=== PATIENT | female | born 1990 | race Caucasian/White ===

== ENCOUNTER 2018-11-07 18:07 | Emergency (ER) | payer OTHER ==
[2018-11-07 18:21] VITALS: BP 127/85
--- NOTE | 2018-11-07 18:57 | UC ---
Cardiac HPI - HPI Summary HPI Summary: 28-year-old woman comes in with a chief complaint of chest pain. She's been having sternal chest pain for 3 days. A 4 out of 10. She does feel short of breath with it. Denies any calf pain. She does have some chronic mild pedal edema. It is not unilateral. Activity makes it worse. This morning when she woke up she did not have any pain but then the pain returned with activity. No fevers or chills no chest congestion. She also reports that when she is emotionally distressed the pain gets worse. She has no history of DVT or pulmonary embolus. No recent surgeries or trauma. No hemoptysis. She is on a control pill. Not a smoker. - History of Current Complaint Chief Complaint: UCChestPain Stated Complaint: CHEST PAIN Time Seen by Provider: 11/07/18 18:25 Pain Intensity: 4 - Allergy/Home Medications Allergies/Adverse Reactions: Allergies Allergy/AdvReac Type Severity Reaction Status Date / Time No Known Allergies Allergy Verified 11/07/18 18:21 Home Medications: Home Medications Ethinyl Estradiol/Drospirenone [Marta 28 Tablet] 1 each PO 11/07/18 [History] Multivitamin/Iron/Folic Acid [Daily Vitamin Formula+Ir] 1 tab PO 11/07/18 [ History] PMH/Surg Hx/FS Hx/Imm Hx Previously Healthy: Yes - Surgical History Surgical History: Yes Surgery Procedure, Year, and Place: wisdom tooth extraction - Family History Known Family History: Positive: Non-Contributory Negative: Blood Disorder - Social History Alcohol Use: Occasionally Substance Use Type: None Smoking Status (MU): Never Smoked Tobacco Review of Systems All Other Systems Reviewed And Are Negative: Yes Constitutional: Positive: Negative Skin: Positive: Negative Eyes: Positive: Negative ENT: Positive: Negative Respiratory: Positive: Shortness Of Breath Cardiovascular: Positive: Chest Pain Gastrointestinal: Positive: Negative Motor: Positive: Negative Neurovascular: Positive: Negative Musculoskeletal: Positive: Negative, Edema. Negative: Calf Tenderness Neurological: Positive: Negative Psychological: Positive: Negative Is Patient Immunocompromised?: No Physical Exam Triage Information Reviewed: Yes Appearance: Well-Appearing, No Pain Distress, Well-Nourished Vital Signs: Initial Vital Signs Temp 99.2 F 11/07/18 18:13 Pulse 82 11/07/18 18:13 Resp 18 11/07/18 18:13 BP 127/85 11/07/18 18:13 Pulse Ox 100 11/07/18 18:13 Vital Signs Reviewed: Yes Eye Exam: Normal Eyes: Positive: Conjunctiva Clear ENT: Positive: Pharynx normal Neck: Positive: Supple Respiratory: Positive: Chest non-tender, Lungs clear, Normal breath sounds, No respiratory distress Cardiovascular: Positive: RRR Abdomen Description: Positive: Nontender, Soft Musculoskeletal: Positive: Strength Intact, ROM Intact, No Edema - no calf tenderness Neurological: Positive: Alert, Muscle Tone Normal Psychological: Positive: Age Appropriate Behavior Skin Exam: Normal Diagnostics - EKG Cardiac Rate: NL - at 1859 Cardiac Rhythm: Sinus: Normal - 84bpm Ectopy: None ST Segment: Normal - Assessment/Plan Course Of Treatment: I discussed the EKG with the patient I do not see any ischemic changes on the EKG. Patient's only risk factor for pulmonary embolus is being on a control pill. I discussed a chest pain evaluation would include further evaluation for pulmonary embolus and cardiac ischemia and pericarditis which we are unable to do here and recommended further evaluation emergency department. Patient prefers to go by POV. - Clinical Impression Provider Diagnosis: Chest pain Discharge - Sign-Out/Discharge Documenting (check all that apply): Patient Departure All imaging exams completed and their final reports reviewed: No Studies - Discharge Plan Condition: Stable Disposition: HOME-RECOMMEND TO ED Patient Education Materials: Chest Pain (ED) Referrals: [facility] [Provider Group] Additional Instructions: GO DIRECTLY TO THE EMERGENCY DEPARTMENT FOR FURTHER EVALUATION OF YOUR CHEST PAIN. - Billing Disposition and Condition Condition: STABLE Disposition: Home-Recommend to ED
== END 2018-11-07 19:25 | disposition home health service (06) ==
LOC: UCEAST 18:07
DX: R07.9 Chest pain, unspecified (principal)
CPT/HCPCS: 99202; G0463

== ENCOUNTER 2018-11-07 19:49 | Emergency (ER) | payer OTHER ==
[2018-11-07 20:55] LABS: ABS Lymphocytes 3.2 10^3/ul (1.0-4.8); ABS Monocytes 0.4 10^3/ul (0-0.8); ABS Neutrophils 3.7 10^3/ul (1.5-7.7); Eosinophil % 0.5 %; Hematocrit 38 % (35-47); Hemoglobin 12.8 g/dL (12.0-16.0); Lymphocyte % 42.7 %; Mean Corpuscular HGB Conc 34 g/dL (31-36); Mean Corpuscular Hemoglobin 29 pg (27-31); Mean Corpuscular Volume 87 fL (80-97); Mean Platelet Volume 9.2 fL (7.4-10.4); Platelet Count 216 10^3/uL (150-450); Red Cell Distribution Width 13 % (10-15); White Blood Count 7.4 10^3/uL (3.5-10.8)
[2018-11-07 21:12] LABS: Albumin 4.1 g/dL (3.2-5.2); Albumin/Globulin Ratio 1.4 (1-3); Calcium 9.6 mg/dL (8.6-10.3); EGFR African American 89.6 (>60); Potassium 3.6 mmol/L (3.5-5.0); Total Bilirubin 0.4 mg/dL (0.2-1.0); Total Protein 7.1 g/dL (6.4-8.9)
[2018-11-07 22:12] VITALS: BP 128/90
--- NOTE | 2018-11-07 22:46 | ED ---
HPI Chest Pain - HPI Summary HPI Summary: The pt is a 28 yr old female presenting to [facility] c/o chest pain beginning 3 days ago. This current episode started after she was feeling stressed about work this morning. She describes the pain as an ache and rates its severity a 4/ 10. She states that moving does not aggravate her symptoms. The pt takes control pills, vitamins, and iron supplements at home. - History of Current Complaint Chief Complaint: EDChestPainROMI Time Seen by Provider: 11/07/18 20:20 Hx Obtained From: Patient Onset/Duration: Started Hours Ago - current episode, Started Days Ago, Still Present Time of Onset: 09:00 Timing: Intermittent Initial Severity: Moderate Current Severity: Moderate Pain Intensity: 4 Pain Scale Used: 0-10 Numeric Character: Dull/Aching Associated Signs and Symptoms: Positive: Chest Pain - Allergy/Home Medications Allergies/Adverse Reactions: Allergies Allergy/AdvReac Type Severity Reaction Status Date / Time No Known Allergies Allergy Verified 11/07/18 18:21 PMH/Surg Hx/FS Hx/Imm Hx Sensory History: Denies: Hx Legally Blind, Hx Deafness Opthamlomology History: Denies: Hx Legally Blind EENT History: Denies: Hx Deafness - Surgical History Surgery Procedure, Year, and Place: wisdom tooth extraction - Immunization History Immunizations Up to Date: Yes Infectious Disease History: No Infectious Disease History: Denies: Traveled Outside the [place] in Last 30 Days - Family History Known Family History: Negative: Blood Disorder - Social History Alcohol Use: Occasionally Substance Use Type: Reports: None Smoking Status (MU): Never Smoked Tobacco Review of Systems Negative: Fever Positive: Chest Pain Neurological: Other - Negative - AMS All Other Systems Reviewed And Are Negative: Yes Physical Exam - Summary Physical Exam Summary: VITAL SIGNS: Reviewed. GENERAL: Patient is a well-developed and nourished female who is lying comfortable in the stretcher. Patient is not in any acute respiratory distress. HEAD AND FACE: No signs of trauma. No ecchymosis, hematomas or skull depressions. No sinus tenderness. EYES: PERRLA, EOMI x 2, No injected conjunctiva, no nystagmus. EARS: Hearing grossly intact. Ear canals and tympanic membranes are within normal limits. MOUTH: Oropharynx within normal limits. NECK: Supple, trachea is midline, no adenopathy, no JVD, no carotid bruit, no c- spine tenderness, neck with full ROM CHEST: Symmetric. Mild tenderness to anterior chest wall. LUNGS: Clear to auscultation bilaterally. No wheezing or crackles. CVS: Regular rate and rhythm, S1 and S2 present, no murmurs or gallops appreciated. ABDOMEN: Soft, non-tender. No signs of distention. No rebound no guarding, and no masses palpated. Bowel sounds are normal. EXTREMITIES: FROM in all major joints, no edema, no cyanosis or clubbing. NEURO: Alert and oriented x 3. No acute neurological deficits. Speech is normal and follows commands. SKIN: Dry and warm Triage Information Reviewed: Yes Vital Signs On Initial Exam: Initial Vitals Temp Pulse Resp BP Pulse Ox 98.2 F 79 16 121/75 100 11/07/18 19:56 11/07/18 19:56 11/07/18 19:56 11/07/18 19:56 11/07/18 19:56 Vital Signs Reviewed: Yes Diagnostics - Vital Signs Vital Signs Temp Pulse Resp BP Pulse Ox 11/07/18 22:11 98.4 F 84 16 128/90 99 11/07/18 22:00 87 13 99 11/07/18 21:42 104 25 99 11/07/18 21:11 90 19 99 11/07/18 21:00 83 23 100 11/07/18 20:42 91 14 114/89 100 11/07/18 20:12 86 14 126/80 100 11/07/18 20:11 83 18 100 11/07/18 19:56 98.2 F 79 16 121/75 100 - Laboratory Lab Results: Lab Results 11/07/18 11/07/18 Range/Units 20:39 20:39 WBC 7.4 (3.5-10.8) 10^3/uL RBC 4.40 (3.70-4.87) 10^6 /uL Hgb 12.8 (12.0-16.0) g/dL Hct 38 (35-47) % MCV 87 (80-97) fL MCH 29 (27-31) pg MCHC 34 (31-36) g/dL RDW 13 (10-15) % Plt Count 216 (150-450) 10^3/uL MPV 9.2 (7.4-10.4) fL Neut % (Auto) 50.4 % Lymph % (Auto) 42.7 % [place] % (Auto) 5.8 % Eos % (Auto) 0.5 % Baso % (Auto) 0.6 % Absolute Neuts (auto) 3.7 (1.5-7.7) 10^3/ul Absolute Lymphs (auto) 3.2 (1.0-4.8) 10^3/ul Absolute Monos (auto) 0.4 (0-0.8) 10^3/ul Absolute Eos (auto) 0.0 (0-0.6) 10^3/ul Absolute Basos (auto) 0.0 (0-0.2) 10^3/ul Absolute Nucleated RBC 0.0 10^3/ul Nucleated RBC % 0.0 Sodium 139 (135-145) mmol/L Potassium 3.6 (3.5-5.0) mmol/L Chloride 105 (101-111) mmol/L Carbon Dioxide 24 (22-32) mmol/L Anion Gap 10 (2-11) mmol/L BUN 9 (6-24) mg/dL Creatinine 0.90 (0.51-0.95) mg/dL Est GFR ( Amer) 89.6 (>60) Est GFR (Non-Af Amer) 74.0 (>60) BUN/Creatinine Ratio 10.0 (8-20) Glucose 100 (70-100) mg/dL Calcium 9.6 (8.6-10.3) mg/dL Total Bilirubin 0.40 (0.2-1.0) mg/dL AST 19 (13-39) U/L ALT 15 (7-52) U/L Alkaline Phosphatase 59 (34-104) U/L Troponin I 0.00 (<0.04) ng/mL Total Protein 7.1 (6.4-8.9) g/dL Albumin 4.1 (3.2-5.2) g/dL Globulin 3.0 (2-4) g/dL Albumin/Globulin Ratio 1.4 (1-3) Result Diagrams: 11/07/18 20:39 11/07/18 20:39 Lab Statement: Any lab studies that have been ordered have been reviewed, and results considered in the medical decision making process. - EKG 1951 Cardiac Rate: NL - 94 BPM EKG Rhythm: Sinus Rhythm Summary of EKG Findings: Normal axis. Normal interval. No ischemic changes. Chest Pain Course/Dx - Course Course Of Treatment: The pt is a 28 yr old female presenting to [facility] c/o chest pain beginning 3 days ago. This current episode started after she was feeling stressed about work this morning. She describes the pain as an ache and rates its severity a 4/10. An EKG reveals sinus rhythm, normal rate @ 94 BPM, normal axis, normal interval, and no ischemic changes. Test results with no significant abnormalities. The pt was discharged home and advised to follow up with primary care physician within 3 days. - Diagnoses Provider Diagnoses: Atypical chest pain Discharge - Sign-Out/Discharge Documenting (check all that apply): Patient Departure - discharge Patient Received Moderate/Deep Sedation with Procedure: No - Discharge Plan Condition: Stable Disposition: HOME Patient Education Materials: Chest Pain (ED) Referrals: [facility] [Outside] - 3 Days Additional Instructions: PLEASE RETURN TO THE ED IMMEDIATELY FOR WORSENING OR CONCERNING SYMPTOMS. FOLLOW UP WITH PRIMARY CARE PHYSICIAN WITHIN 3 DAYS. - Attestation Statements Document Initiated by Scribe: Yes Documenting Scribe: RACHELLE RODRIGUEZ Provider For Whom Aleks is Documenting (Include Credential): RUPERT OROURKE MD Scribe Attestation: IRACHELLE, scribed for RUPERT OROURKE MD on 11/07/18 at 2324. Status of Scribe Document: Ready
== END 2018-11-07 22:11 | disposition home or self-care (01) ==
LOC: ED 19:49
DX: R07.89 Other chest pain (principal)
CPT/HCPCS: 36415; 80053; 84484; 85025; 93005; 99282

== ENCOUNTER 2020-11-29 21:57 | Inpatient (IN) ==
[2020-11-29] MEDS ORDERED: Buffered Lidocaine 1% SYRIN 1 ml INTRADERM ONE (23:05)
[2020-11-29] MEDS ORDERED: Lactated Ringers 1000 ml BAG 1,000 ML IV ONE (23:05)
[2020-11-29] MEDS ORDERED: Lactated Ringers 1000 ml BAG 1,000 ML IV SCH (23:45)
[2020-11-30 00:08] LABS: Urine Benzodiazepine Screen None Detected (None Detect); Urine Cannabinoids Screen None Detected (None Detect); Urine Opiates Screen None Detected (None Detect)
[2020-11-30] MEDS ORDERED: Oxytocin in LR 20 UNITS/1,000 ML BAG IVPB ONE (08:14)
[2020-11-30] MEDS ORDERED: Glycerin ADULT 2.4 gm SUPP PR PRN (08:48)
[2020-11-30] MEDS ORDERED: ceFOXitin 2 GM IVPREMIX 2 GM/50 ML BAG IVPB ONE (08:52)
[2020-11-30] MEDS ORDERED: Lactated Ringers 1000 ml BAG 1,000 ML IV SCH (09:00)
[2020-11-30] MEDS ORDERED: Oxytocin in LR 20 UNITS/1,000 ML BAG IVPB SCH (09:00)
[2020-11-30 09:28] LABS: ABS Lymphocytes 1.3 10^3/ul (1.0-4.8); ABS Monocytes 0.6 10^3/ul (0-0.8); ABS Neutrophils 13.6 10^3/ul (1.5-7.7); Hematocrit 40 % (35-47); Hemoglobin 13.3 g/dL (12.0-16.0); Lymphocyte % 8.3 %; Mean Corpuscular HGB Conc 34 g/dL (31-36); Mean Corpuscular Hemoglobin 31 pg (27-31); Mean Corpuscular Volume 91 fL (80-97); Mean Platelet Volume 11.8 fL (7.4-10.4); Platelet Count 175 10^3/uL (150-450); Red Blood Count 4.36 10^6 /uL (3.70-4.87); Red Cell Distribution Width 14 % (10-15); White Blood Count 15.5 10^3/uL (3.5-10.8)
[2020-11-30] MEDS ORDERED: ceFOXitin 2 GM IVPREMIX 2 GM/50 ML BAG ONE (09:44)
[2020-11-30] MEDS ORDERED: Ammonia Inhalant 1 EA AMP ONE (10:18)
[2020-11-30] MEDS ORDERED: Lidocaine 1% VIAL 10 MG/ML VIAL ONE (12:34)
[2020-11-30] MEDS: Dibucaine 1% OINT 28.35 GM TUBE PR PRN (13:12)
[2020-11-30] MEDS: Witch Hazel PAD JAR TOPICAL PRN (13:12)
[2020-11-30] MEDS ORDERED: RHO D Immune Globulin (HUMAN) 300 MCG = 1,500 I.U. INJ IM PRN (13:59)
[2020-12-01 07:51] LABS: ABS Lymphocytes 2.2 10^3/ul (1.0-4.8); ABS Monocytes 0.6 10^3/ul (0-0.8); ABS Neutrophils 7.3 10^3/ul (1.5-7.7); Eosinophil % 0.2 %; Hematocrit 32 % (35-47); Hemoglobin 10.9 g/dL (12.0-16.0); Mean Corpuscular HGB Conc 34 g/dL (31-36); Mean Corpuscular Hemoglobin 31 pg (27-31); Mean Corpuscular Volume 90 fL (80-97); Mean Platelet Volume 10.2 fL (7.4-10.4); Platelet Count 151 10^3/uL (150-450); Red Blood Count 3.55 10^6 /uL (3.70-4.87); Red Cell Distribution Width 14 % (10-15); White Blood Count 10.2 10^3/uL (3.5-10.8)
[2020-12-02 07:57] VITALS: BP 117/85
[2020-12-02] MEDS: Dibucaine 1% OINT 28.35 GM TUBE PR PRN (16:34)
[2020-12-02] MEDS: Witch Hazel PAD JAR TOPICAL PRN (16:35)
== END 2020-12-02 17:29 | disposition home or self-care (01) | DRG 806 ==
LOC: MCHOBOUT 21:57 → MCHOB 22:15
PROVIDERS: ADMIT Midwife; ATTEND Midwife